=== PATIENT | female | born 1965 | race Caucasian/White ===

== ENCOUNTER 2019-07-26 08:07 | Emergency (ER) | payer OTHER, SELFPAY ==
[2019-07-26 08:32] VITALS: BP 110/78; PULSE 78; RESP 16; TEMP 35.8; O2SAT 99
--- NOTE | 2019-07-26 08:39 | ED.GENADULT ---
HPI - General Adult General Chief complaint: Back Pain/Injury Stated complaint: BACK PAIN Time Seen by Provider: 07/26/19 08:39 Source: patient and RN notes reviewed Mode of arrival: ambulatory Limitations: no limitations History of Present Illness HPI narrative: 53-year-old female presents with complaints of stabbing sensation to RT lower back pain for 4 days. No treatment. Sits for 12 hours a day while working. Denies new injuries or falls. Denies radiating pain, numbness, or tingling. Denies fever or chills. No upper or lower extremity pain or weakness. No exacerbating factors. Denies nausea, vomiting, or abdominal pain. Denies problems with urinating or having a bowel movement, LBM 07/25/19. No flank pain. Denies hematuria, dysuria, no burning, frequency, or urgency. No significant pelvic pain. No vaginal discharge.? No concerns for STDs. Denies vaginal bleeding. Tolerating liquids well.? Remains active. Some parts of this dictation were generated by voice recognition software and may contain typographical and/or grammatical inaccuracies. Related Data Home Medications Medication Instructions Recorded Confirmed bupropion HCl 300 mg PO DAILY 06/19/19 07/26/19 buspirone 101 mg PO DAILY 06/19/19 07/26/19 simvastatin 20 mg PO DAILY 06/19/19 07/26/19 liraglutide (weight loss) [Saxenda] mg SUBCUT 07/26/19 Allergies Allergy/AdvReac Type Severity Reaction Status Date / Time hydrocodone Allergy Mild Verified 08/28/18 17:38 Review of Systems Review of Systems: Narrative: CONSTITUTIONAL: Denies fever, chills, sweats. EYES: Denies visual changes, redness, discharge. ENT: Denies rhinorrhea, congestion, sore throat, otalgia. CARDIOVASCULAR: Denies chest pain, palpitations, edema. RESPIRATORY: Denies dyspnea, wheezing, cough. GASTROINTESTINAL: Denies abdominal pain, nausea, vomiting, diarrhea. GENITOURINARY: Denies dysuria, hematuria, abnormal discharge. SKIN: Denies rash or itching. MUSCULOSKELETAL:Complains of RT lower back pain. Denies joint pain or myalgia. NEUROLOGIC: Denies numbness or focal weakness. PSYCHIATRIC: Denies anxiety or depression. All systems reviewed & are unremarkable except as noted in HPI and below. [facility] Past Medical History Medical History (Updated 07/27/19 @ 00:01 by José Burnett) Anxiety Episode of syncope Hyperlipidemia Pacemaker Surgical History Surgical History (Updated 07/31/19 @ 23:02 by IZABELA Smith) History of adenoidectomy History of arthroscopic knee surgery Left History of bunionectomy of both great toes History of tonsillectomy Mitral valve replaced Previous section Family History Family History (Updated 07/31/19 @ 23:02 by IZABELA Smith) Other No significant family history Social History Social History (Updated 07/26/19 @ 08:51 by IZABELA Smith) Smoking status: Never smoker Alcohol intake: never Substance use: never Occupation/Education: occupation Additional occupation/education comments: Works from home, sits for 12 hours Gender identity (if verbalized by the patient): Female Comments At time of signature, agree with nurse past medical, surgical, social, and family history.? There is no relevant family history pertinent to the presenting complaint. Exam Narrative: Exam Narrative: GENERAL: This is a well-nourished, well-developed patient, in no apparent distress.? Talks in full sentences and ambulates with steady gait without dyspnea. HEAD: normocephalic, atraumatic. EYES: PERRL. Sclera clear/white. Vision is grossly intact. CARDIOVASCULAR: Regular rate and rhythm without murmurs, gallops, or rubs. RESPIRATORY: Clear to auscultation. Breath sounds equal bilaterally. No wheezes, rales, or rhonchi.? GASTROINTESTINAL: Abdomen soft, no significant abdominal tenderness, nondistended. Bowel sounds are active. No hepato-splenomegaly, or palpable masses. No guarding. SKIN: warm, intact with no nicolle
[2019-07-26 09:05] VITALS: TEMP 35.8
== END 2019-07-26 09:04 | disposition home or self-care (01) ==
PROVIDERS: Emergency Provider Nurse Practitioner Family; PCP Internal Medicine
DX: R31.9 Hematuria, unspecified (principal); M54.5 Low back pain
CPT/HCPCS: 81003; 99213; G0463

== ENCOUNTER 2021-02-19 15:01 | Emergency (ER) | payer OTHER, SELFPAY ==
[2021-02-19 15:13] VITALS: BP 114/75; PULSE 60; RESP 18; TEMP 36.4; O2SAT 98
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
== END 2021-02-19 16:02 | disposition home or self-care (01) ==
PROVIDERS: Emergency Provider Nurse Practitioner; PCP Internal Medicine
DX: M54.2 Cervicalgia (principal); S13.4XXA Sprain of ligaments of cervical spine, initial encounter; V49.9XXA Car occupant (driver) (passenger) injured in unspecified traffic accident, initial encounter; F41.9 Anxiety disorder, unspecified; E78.00 Pure hypercholesterolemia, unspecified; Z95.0 Presence of cardiac pacemaker; Z95.2 Presence of prosthetic heart valve
CPT/HCPCS: 99213; G0463